=== PATIENT | male | born 1965 | race Caucasian/White ===

== ENCOUNTER 2024-09-01 19:35 | Outpatient (CLI) | payer MEDICAID, SELFPAY | END 2024-09-01 19:36 | disposition home or self-care (01) | LOC: AMB 09-04 21:38 | PROVIDERS: PCP Family Medicine; Visit Provider Emergency Medicine Emergency Medical Services | DX: M62.81 Muscle weakness (generalized) (principal); R20.0 Anesthesia of skin | CPT/HCPCS: A0425; A0427 ==